=== PATIENT | male | born 1985 | race Caucasian/White ===

== ENCOUNTER 2023-06-27 22:56 | Inpatient (IN) | payer OTHER ==
[~2023-06-27] VITALS: Ht 182.9 cm; Wt 117.9 kg
[2023-06-27 23:54] LABS: BASOPHILS ABSOLUTE AUTO 0.06 K/mm3 (0.00-0.23); BASOPHILS PERCENT AUTO 0 % (0-2); EOSINOPHILS PERCENT AUTO 0 % (0-6); Hematocrit 43.9 % (37.0-53.0); Hemoglobin 14.5 g/dL (13.5-17.5); IMMATURE GRAN ABSOLUTE AUTO 0.32 K/mm3 (0.00-0.10); IMMATURE GRAN PERCENT AUTO 2 % (0-1); LYMPHOCYTES ABSOLUTE AUTO 0.66 K/mm3 (0.84-5.20); LYMPHOCYTES PERCENT AUTO 3 % (21-46); MONOCYTES ABSOLUTE AUTO 1.02 K/mm3 (0.16-1.47); MONOCYTES PERCENT AUTO 5 % (4-13); Mean Corpuscular HGB 28.8 pg (26.0-34.0); Mean Corpuscular Volume 87 fL (80-100); Mean Platelet Volume 11.3 fL (9.1-12.4); NEUTROPHILS ABSOLUTE AUTO 19.89 K/mm3 (1.96-9.15); NEUTROPHILS PERCENT AUTO 91 % (41-73); Platelet Count 161 K/mm3 (150-400); RDW Standard Deviation 48.6 fL (35.1-46.3); Red Blood Cell Count 5.03 M/mm3 (4.30-5.90); White Blood Cell Count 21.95 K/mm3 (4.00-11.30)
[2023-06-28 00:14] LABS: Albumin, Blood 3.2 g/dL (3.4-5.0); Albumin/Globulin Ratio 0.7 (0.8-1.8); Bilirubin, Total 0.5 mg/dL (0.1-1.0); Bun/Creatinine Ratio 20.7 (12.0-20.0); Calcium, Blood 7.7 mg/dL (8.5-10.1); Creatinine, Blood 0.63 mg/dL (0.60-1.20); Globulin, Blood 4.6 g/dL (2.2-4.0); Potassium, Blood 4.6 mmol/L (3.5-5.5); Total Protein, Blood 7.8 g/dL (6.4-8.2)
[2023-06-28 00:21] LABS: Influenza A, PCR NEGATIVE (NEGATIVE); Influenza B, PCR NEGATIVE (NEGATIVE); Resp Syncytial Virus, PCR NEGATIVE (NEGATIVE); SARS-Cov-2 (COVID-19) PCR, MMC NEGATIVE (NEGATIVE)
[2023-06-28 02:02] LABS: Source, Urine Clean Catch
[2023-06-28 02:07] LABS: Bilirubin, Urine Neg (Neg); Blood, Urine 1+ (Neg); Glucose Qualitative, Urine Neg (Neg); Ketones, Urine Neg (Neg); Leukocyte Esterase, Urine Neg (Neg); Nitrite, Urine Neg (Neg); Protein, Urine 1+ (Neg); Urobilinogen, Urine NORM (Normal)
[2023-06-28 02:08] LABS: Appearance, Urine Clear (Clear); Color, Urine Yellow (P-Yellow)
[2023-06-28 02:13] LABS: Bacteria Not Seen /hpf; Squamous Epithelial Cells Not Seen /hpf (Few); White Blood Cells, Urine 0-2 /hpf (0-5)
[2023-06-28 04:25] VITALS: BP 160/103
[2023-06-28 07:05] LABS: BASOPHILS ABSOLUTE AUTO 0.06 K/mm3 (0.00-0.23); BASOPHILS PERCENT AUTO 0 % (0-2); EOSINOPHILS PERCENT AUTO 0 % (0-6); Hematocrit 40.7 % (37.0-53.0); Hemoglobin 13.5 g/dL (13.5-17.5); IMMATURE GRAN ABSOLUTE AUTO 0.24 K/mm3 (0.00-0.10); IMMATURE GRAN PERCENT AUTO 1 % (0-1); LYMPHOCYTES ABSOLUTE AUTO 0.68 K/mm3 (0.84-5.20); LYMPHOCYTES PERCENT AUTO 3 % (21-46); MONOCYTES ABSOLUTE AUTO 1.01 K/mm3 (0.16-1.47); MONOCYTES PERCENT AUTO 5 % (4-13); Mean Corpuscular HGB 28.7 pg (26.0-34.0); Mean Corpuscular HGB Conc 33.2 g/dL (31.5-36.5); Mean Corpuscular Volume 87 fL (80-100); Mean Platelet Volume 11.5 fL (9.1-12.4); NEUTROPHILS ABSOLUTE AUTO 19.27 K/mm3 (1.96-9.15); NEUTROPHILS PERCENT AUTO 91 % (41-73); Platelet Count 155 K/mm3 (150-400); RDW Coefficient Variation 15.3 % (11.7-14.2); RDW Standard Deviation 48.8 fL (35.1-46.3); White Blood Cell Count 21.26 K/mm3 (4.00-11.30)
[2023-06-28 07:16] VITALS: BP 182/100
[2023-06-28 07:25] LABS: Albumin, Blood 3.2 g/dL (3.4-5.0); Albumin/Globulin Ratio 0.7 (0.8-1.8); Bilirubin, Total 0.7 mg/dL (0.1-1.0); Bun/Creatinine Ratio 16.1 (12.0-20.0); Calcium, Blood 8.5 mg/dL (8.5-10.1); Creatinine, Blood 0.74 mg/dL (0.60-1.20); Globulin, Blood 4.7 g/dL (2.2-4.0); Potassium, Blood 3.7 mmol/L (3.5-5.5); Total Protein, Blood 7.9 g/dL (6.4-8.2)
[2023-06-28 14:49] VITALS: BP 141/73
--- NOTE | 2023-06-28 19:33 | NUR ---
SUMMARY- PT HAD HIGH TEMP OF 102.5 THIS MORNING. TYLENOL AND IBUPROFEN GIVEN. PT DID NOT HAVE A TEMP FOR THE REST OF THE SHIFT. PT SLEPT MOST OF THE SHIFT. PT LETHARGIC, BUT RESPONSIVE TO VERBAL STIMULI. SBA WITH WALKER. AAOX3. HAS GOOD APPETITE.
[2023-06-28 20:24] VITALS: BP 148/82
--- NOTE | 2023-06-29 00:02 | NUR ---
NOTED ARGUMENTS WITH BROTHER, AND THREATENING TO LEAVE THE HOSPITAL. ARGUMENT CONFRONTED, BROTHER LEFT. PT ENCOURAGED TO STAY UNTIL AM TO SPEAK WITH THE MD EMILY BOWER LEG INFECTIONS. CALL LIGHT IN REACH
[2023-06-29 04:40] VITALS: BP 169/105
[2023-06-29 05:33] VITALS: BP 174/98
[2023-06-29 05:35] LABS: BASOPHILS ABSOLUTE AUTO 0.04 K/mm3 (0.00-0.23); BASOPHILS PERCENT AUTO 0 % (0-2); EOSINOPHILS ABSOLUTE AUTO 0.04 K/mm3 (0.00-0.68); EOSINOPHILS PERCENT AUTO 0 % (0-6); Hematocrit 42.9 % (37.0-53.0); Hemoglobin 13.9 g/dL (13.5-17.5); IMMATURE GRAN ABSOLUTE AUTO 0.08 K/mm3 (0.00-0.10); IMMATURE GRAN PERCENT AUTO 1 % (0-1); LYMPHOCYTES ABSOLUTE AUTO 0.85 K/mm3 (0.84-5.20); LYMPHOCYTES PERCENT AUTO 7 % (21-46); MONOCYTES PERCENT AUTO 10 % (4-13); Mean Corpuscular HGB 28.7 pg (26.0-34.0); Mean Corpuscular HGB Conc 32.4 g/dL (31.5-36.5); Mean Corpuscular Volume 89 fL (80-100); Mean Platelet Volume 11.5 fL (9.1-12.4); NEUTROPHILS ABSOLUTE AUTO 10.22 K/mm3 (1.96-9.15); NEUTROPHILS PERCENT AUTO 82 % (41-73); Platelet Count 142 K/mm3 (150-400); RDW Coefficient Variation 15.6 % (11.7-14.2); RDW Standard Deviation 51.1 fL (35.1-46.3); Red Blood Cell Count 4.84 M/mm3 (4.30-5.90); White Blood Cell Count 12.43 K/mm3 (4.00-11.30)
--- NOTE | 2023-06-29 05:39 | NUR ---
SHIFT SUMMARY PT ADMIT FOR SEPSIS. EDEMATOUS BLE, BUE BY SHIFT END. HAD TO REMOVE WRIST BAND DT SWELLING IN HANDS AND WRISTS. PT BP WAS ELEVATED TO 169/105 AT 0440. ADMINISTERED 10MG APRESOLINE AT 0452. BP CHANGE TO 174/98 AT 0533. PT SLEPT MOST OF NIGHT AND WAS SLOW TO WAKE UPON DISTURBANCE. HAD ARGUMENT WITH BROTHER EARLIER IN SHIFT AND WAS SAYING HE WANTED TO LEAVE. TANYA HUNTER WAS ABLE TO DEESCELATE AND PT AGREED TO STAY TO SPEAK WITH PHYSICIAN AND SEEK TREATMENT.
[2023-06-29 06:17] LABS: Magnesium, Blood 2.1 mg/dL (1.6-2.4)
[2023-06-29 06:29] LABS: Alanine Aminotransfer (ALT/SGP 33 U/L (12-78); Albumin, Blood 2.7 g/dL (3.4-5.0); Albumin/Globulin Ratio 0.6 (0.8-1.8); Alk Phos 88 U/L (50-136); Anion Gap 3 mmol/L (6-16); Aspartate Aminotrans (AST/SGOT 29 U/L (12-37); Bilirubin, Total 0.4 mg/dL (0.1-1.0); Blood Urea Nitrogen 15 mg/dL (8-24); Bun/Creatinine Ratio 20.6 (12.0-20.0); CO2, Blood 29 mmol/L (21-32); Chloride, Blood 108 mmol/L (98-108); Creatinine, Blood 0.73 mg/dL (0.60-1.20); Globulin, Blood 4.9 g/dL (2.2-4.0); Glomerular Filtration Rate 119 (60-); Glucose, Blood 105 mg/dL (70-99); Phosphorus, Blood 0.8 mg/dL (2.5-4.9); Sodium, Blood 140 mmol/L (136-145); Total Protein, Blood 7.6 g/dL (6.4-8.2)
[2023-06-29 08:06] VITALS: BP 173/92
[2023-06-29 16:40] VITALS: BP 169/92
--- NOTE | 2023-06-29 18:43 | NUR ---
1654- THIS RN WENT INTO PT'S ROOM TO ADMINSITER MEDS. PT TUCKED SOMETHING UNDER THIGH WHEN RN ENTERED ROOM. PT REFUSED TO SHOW RN WHAT WAS IN HIS SAM PACK OR UNDER HIS THIGH. RN SMELT A STRONG UNFAMILIAR ODOR IN ROOM THAT SMELT BURNT. RN INFORMED CHARGE NURSE DELANO AND BAKARI. SECURITY WAS CALLED. PT GAVE UP HIS VAPE PEN. PT LET SECURITY SEARCH HIS SAM PACK. RN ASKED PT TO STAND UP SO WE COULD LOOK IN HIS BED TO ENSURE NO NEEDLES/DRUGS WERE PRESENT FOR STAFF'S SAFETY. PT THEN STATED HE WANTED TO LEAVE AMA. RN SAW A SMALL BAG IN PT'S RIGHT HAND WITH WHITE POWDER SUBSTANCE IN IT. RN STATED, "WHAT'S IN YOUR RIGHT HAND?" PT STATED, "NOTHING." SECURITY OFFICERS CONFISCATED THE BAG WITH SUBSTANCE IN IT. RN INFORMED PT EXTENSIVELY OF THE RISKS VS BENEFITS OF LEAVING. PT STILL WANTED TO LEAVE. RN AGAIN ADVISED PT TO STAY BECAUSE HE WAS SPETIC AND NEEDED THE TREATMENT, BUT PT REFUSED AND WANTED TO LEAVE. PT SIGNED AMA PAPERWORK. IV REMOVED FROM PT BEFORE DC.
[2023-06-30 15:33] LABS: HIV 1,2 COMBO ANTIGEN/ANTIBODY Negative (Negative)
[2023-06-30 16:12] LABS: HEPATITIS A ANTIBODY, IGM Negative (Negative); HEPATITIS B CORE ANTIBODY, IGM Negative (Negative); HEPATITIS B SURFACE ANTIGEN Negative (Negative); HEPATITIS C AB CIA INTERP High Pos (Negative); HEPATITIS C ANTIBODY CIA INDEX >11.00 IV
[2023-07-01 11:22] LABS: HCV QNT BY NAAT (IU/ML) Not Detected; HCV QNT BY NAAT (LOG IU/ML) Not Detected; HCV QNT BY NAAT INTERP Not Detected (Not Detected)
[2023-07-01 12:17] LABS: HCV QNT BY NAAT (IU/ML) Not Detected; HCV QNT BY NAAT (LOG IU/ML) Not Detected; HCV QNT BY NAAT INTERP Not Detected (Not Detected)
== END 2023-06-29 17:25 | disposition left against medical advice (07) | DRG 871 ==
LOC: ER 22:56 → MEDS 06-28 03:36
PROVIDERS: Family Medicine; Student in an Organized Health Care Education/Training Program; ADMIT Internal Medicine
DX: A41.9 Sepsis, unspecified organism (principal); G92.8 Other toxic encephalopathy; L03.116 Cellulitis of left lower limb; L03.115 Cellulitis of right lower limb; F11.13 Opioid abuse with withdrawal; I10 Essential (primary) hypertension; R59.0 Localized enlarged lymph nodes; Z53.29 Procedure and treatment not carried out because of patient's decision for other reasons; Z11.52 Encounter for screening for COVID-19
CPT/HCPCS: 0241U; 36415; 71046; 74177; 80053; 80074; 80202; 81001; 82947; 83605; 83735; 84100; 85025; 87389; 87522; 93005; 93010; 94760; 96361; 96374; 96375; 99285-25; A9270; J0360; J0692; J1650; J2405; J3010; J3370; J7030; J7050; J7060; J7120; Q9967